=== PATIENT | female | born 1990 | race Two or more races ===

== ENCOUNTER 2019-01-22 18:55 | Emergency (ER) | payer MEDICAID ==
[~2019-01-22] VITALS: Ht 162.6 cm; Wt 60.0 kg
[2019-01-22] MEDS ORDERED: KETOROLAC 30MG/ML VIAL IM ONE (19:45)
[2019-01-22 21:40] VITALS: BP 140/89
== END 2019-01-22 21:41 | disposition home or self-care (01) ==
LOC: ER 18:55
DX: R07.81 Pleurodynia (principal); R06.02 Shortness of breath; R06.7 Sneezing
CPT/HCPCS: 71101; 81025; 96372; 99283; J1885; Z7610